=== PATIENT | female | born 1965 | race Caucasian/White ===

== ENCOUNTER 2017-12-22 00:15 | Outpatient (CLI) | payer OTHER, SELFPAY ==
--- NOTE | 2017-12-22 07:38 | DI.MAMMO_ITS ---
SYMPTOM/DIAGNOSIS: SCREENING, Z12.31 MAMMOGRAMS: Mammograms were interpreted according to the usual protocol including computer analysis with CAD system, tomosynthesis and C view imaging. Comparison is made with prior examinations. Breast density, category D. No masses or microcalcifications are seen. There is nothing to suggest malignancy. IMPRESSION: Negative mammogram. Routine screening is recommended. Category 1D. MQSA ASSESSMENT OF FINDINGS: Negative. Category 1. Patient will receive a letter notifying them of these results. BI-RADS category D. The breasts are extremely dense, which lowers the sensitivity of mammography.
== END 2017-12-22 00:35 ==
PROVIDERS: PCP Nurse Practitioner Family; Visit Provider Nurse Practitioner Family
DX: Z12.31 Encounter for screening mammogram for malignant neoplasm of breast (principal)
CPT/HCPCS: 77063; 77067

== ENCOUNTER 2018-04-21 18:45 | Outpatient (REF) | payer OTHER, SELFPAY ==
[2018-04-23 14:36] LABS: Chlamydia Result Negative; GC Result Negative; Specimen Description URINE
== END 2018-04-21 19:05 ==
LOC: NCHCN 18:45
PROVIDERS: PCP Nurse Practitioner Family; Visit Provider Nurse Practitioner Family
DX: R10.31 Right lower quadrant pain (principal); R39.15 Urgency of urination; L29.8 Other pruritus; Z11.3 Encounter for screening for infections with a predominantly sexual mode of transmission
CPT/HCPCS: 87491; 87591; 87086; 87480; 87510; 87660

== ENCOUNTER 2019-08-20 13:02 | Outpatient (REF) | payer OTHER, SELFPAY ==
--- NOTE | 2019-08-20 10:20 | PAPFT_PTH ---
PATIENT: Pauly Graves LOC: [facility] U#:[id number] AGE/SX: 53/F ROOM: RE08/20/[address]: SEYMOUR Blake : 1965 BED: DIS: 08/20/2019 SPEC #: [id number] RECD: 08/23/19 12:58 STATUS: ROBERT REQ #: [id number] TREVOR: 08/20/19 10:[address]: Nhung Ramírez DEPT: [facility] [place] Cytology RECD BY: Shantal Larsen ENTERED: 08/23/19 12:58 SP TYPE: PAPFT OTHR DR: Niki Hooker Tissues: 1 - CX/ENDOCX FOR PAP SMEARS Procedures: PAP THIN PREP/UVM Screening HPV DNA PROBE Comments: [id number]
== END 2019-08-20 13:22 ==
LOC: LBN 13:02
PROVIDERS: PCP Nurse Practitioner Family; Visit Provider Nurse Practitioner Family
DX: Z12.4 Encounter for screening for malignant neoplasm of cervix (principal); Z11.51 Encounter for screening for human papillomavirus (HPV)
CPT/HCPCS: 88142; 87624

== ENCOUNTER 2020-05-10 02:43 | Outpatient (CLI) | payer OTHER, SELFPAY ==
--- NOTE | 2020-05-10 15:50 | DI.MAMMO_ITS ---
EXAM: MG MAMMO SCREENING CLINICAL HISTORY: screening,z12.39 TECHNIQUE: Bilateral full field digital CC and MLO mammographic images were obtained with 3D tomosyn thesis and utilizing computer aided detection (CAD). COMPARISON: Available for comparison. FINDINGS: Masses/Architectural Distortion: None seen. Microcalcifications: No suspicious pleomorphic-type are seen. Skin Thickening/Nipple Retraction: None. IMPRESSION: 1. No significant interval change with no specific features of malignancy noted. 2. Unless there is more urgent need, screening mammography is recommended, as per [place] [employer] guidelines. BI-RADS Category 1 - Negative Breast Density - Category D - Extremely dense Breast density category C or D implies that the patient has dense breast tissue. Dense breast tissue is very common and is not abnormal but dense breast tissue can make it harder to find cancer on a ma mmogram. Also, dense breast tissue may increase their breast cancer risk. This information about the result of the mammogram report was provided to the patient to raise their awareness. Use this report when you speak with the patient about their risks for breast cancer, which includes their family hist ory. At that time, you may recommend for more screening tests (Ultrasound or MRI) as they might be us eful based on their risk. A negative radiographic report should not delay biopsy if a dominant or clinically suspicious mass is present. Up to ten percent of cancers are not identified on mammography. A negative report may reinforce clinical impression. Adenosis and dense breasts may obscure an underlying neoplasm. False positive reports average 6 to 10%. Patient will receive a letter notifying them of these results.
== END 2020-05-10 02:44 | disposition home or self-care (01) ==
LOC: DI 02:44
PROVIDERS: PCP Nurse Practitioner Family; Visit Provider Nurse Practitioner Family
DX: Z12.31 Encounter for screening mammogram for malignant neoplasm of breast (principal)
CPT/HCPCS: 77063; 77067

== ENCOUNTER 2020-05-25 02:48 | Outpatient (CLI) | payer OTHER, SELFPAY ==
[2020-05-25 09:00] LABS: Calculated LDL 155 mg/dL (<100); Cholesterol 245 mg/dL (<200); Glucose 96 mg/dL (74-106); HDL Cholesterol 66 mg/dL (40-60); Triglyceride 121 mg/dL (<150)
== END 2020-05-25 02:49 | disposition home or self-care (01) ==
LOC: LBO 02:48
PROVIDERS: PCP Nurse Practitioner Family; Visit Provider Nurse Practitioner Family
DX: Z00.00 Encounter for general adult medical examination without abnormal findings (principal); Z13.1 Encounter for screening for diabetes mellitus; Z13.220 Encounter for screening for lipoid disorders
CPT/HCPCS: 36415; 80061; 82947

== ENCOUNTER 2021-05-16 09:05 | Outpatient (REF) | payer OTHER, SELFPAY ==
[2021-05-16 13:19] LABS: Calculated LDL 143 mg/dL (<100); Cholesterol 240 mg/dL (<200); Glucose 88 mg/dL (74-106); HDL Cholesterol 83 mg/dL (40-60); Triglyceride 72 mg/dL (<150)
== END 2021-05-16 09:06 | disposition home or self-care (01) ==
LOC: NCHCN 09:05
PROVIDERS: PCP Nurse Practitioner Family; Visit Provider Nurse Practitioner Family
DX: Z00.00 Encounter for general adult medical examination without abnormal findings (principal); Z13.220 Encounter for screening for lipoid disorders; Z13.1 Encounter for screening for diabetes mellitus
CPT/HCPCS: 80061; 82947

== ENCOUNTER 2022-06-17 09:18 | Outpatient (REF) | payer OTHER, SELFPAY ==
[2022-06-17 09:58] LABS: Calculated LDL 145 mg/dL (<100); Cholesterol 236 mg/dL (<200); Glucose 94 mg/dL (74-106); HDL Cholesterol 81 mg/dL (40-60); Triglyceride 52 mg/dL (<150)
== END 2022-06-17 09:19 | disposition home or self-care (01) ==
LOC: NCHCN 09:18
PROVIDERS: PCP Nurse Practitioner Family; Visit Provider Nurse Practitioner Family
DX: Z00.00 Encounter for general adult medical examination without abnormal findings (principal); Z13.220 Encounter for screening for lipoid disorders; Z13.1 Encounter for screening for diabetes mellitus
CPT/HCPCS: 80061; 82947

== ENCOUNTER 2022-11-04 16:17 | Outpatient (REF) | payer OTHER, SELFPAY ==
--- NOTE | 2022-11-04 15:50 | PAPFT_PTH ---
PATIENT: Pauly Graves LOC: [facility] U#:[id number] AGE/SX: 57/F ROOM: RE11/04/[address]: Ruth Ray NP : 1965 BED: DIS: 11/04/2022 SPEC #: [id number] RECD: 11/04/22 18:00 STATUS: ROBERT REViajy #: [id number] TREVOR: 11/04/22 15:[address]: Ruth Ray NP DEPT: [facility] Cytology RECD BY: Shantal Larsen ENTERED: 11/04/22 18:01 SP TYPE: PAPFT OTHR DR: Niki Hooker Tissues: 1 - CX/ENDOCX FOR PAP SMEARS Procedures: PAP THIN PREP/UVM Screening HPV DNA PROBE Comments: [id number]
== END 2022-11-04 16:18 | disposition home or self-care (01) ==
LOC: LBN 16:17
PROVIDERS: PCP Nurse Practitioner Family; Visit Provider Nurse Practitioner Women's Health
DX: Z12.4 Encounter for screening for malignant neoplasm of cervix (principal); Z11.51 Encounter for screening for human papillomavirus (HPV); R87.810 Cervical high risk human papillomavirus (HPV) DNA test positive
CPT/HCPCS: 88142; 87624

== ENCOUNTER 2023-06-25 13:08 | Outpatient (REF) | payer BC, SELFPAY | END 2023-06-25 13:09 | disposition home or self-care (01) | LOC: LBN 13:08 | PROVIDERS: PCP Nurse Practitioner Family; Visit Provider Nurse Practitioner Women's Health | DX: N76.0 Acute vaginitis (principal) | CPT/HCPCS: 87480; 87510; 87660 ==

== ENCOUNTER 2023-07-22 11:09 | Outpatient (REF) | payer BC, SELFPAY | END 2023-07-22 11:10 | disposition home or self-care (01) | LOC: LBN 11:09 | PROVIDERS: PCP Nurse Practitioner Family; Visit Provider Nurse Practitioner Women's Health | DX: N76.0 Acute vaginitis (principal) | CPT/HCPCS: 87480; 87510; 87660 ==

== ENCOUNTER 2024-08-03 07:50 | Outpatient (CLI) | payer BC, SELFPAY ==
[2024-08-03 08:15] LABS: Calculated LDL 136 mg/dL (<100); Cholesterol 237 mg/dL (<200); Glucose 100 mg/dL (74-106); HDL Cholesterol 79 mg/dL (>or=50); Triglyceride 111 mg/dL (<150)
== END 2024-08-03 07:51 | disposition home or self-care (01) ==
LOC: LBO 07:50
PROVIDERS: PCP Nurse Practitioner Family; Visit Provider Nurse Practitioner Family
DX: Z00.00 Encounter for general adult medical examination without abnormal findings (principal)
CPT/HCPCS: 36415; 80061; 82947

== ENCOUNTER 2024-09-15 14:58 | Outpatient (CLI) | payer BC, SELFPAY ==
--- NOTE | 2024-09-15 14:30 | DI.RAD_ITS ---
Exam(s) XR HIP LT COMPLETE AP PELVIS EXAM: XR HIP LT COMPLETE AP PELVIS CLINICAL HISTORY: Lt hip pain s/p fall on 09/05, M25.552, r/o fx. TECHNIQUE: 2D digital imaging was performed of the left hip. Three views were obtained. AP pelvis and lateral left hip views were obtained. COMPARISON: No exams were available for comparison FINDINGS: BONES: No acute fracture is present. No bony destructive lesion is seen. JOINTS: No dislocation present. SOFT TISSUE: Normal. IMPRESSION: No acute fracture or dislocation. DATA REPOSITORY: RADIATION DOSE DELIVERED:
--- NOTE | 2024-09-15 15:33 | DI.RAD_ITS ---
Exam(s) XR LUMBAR SPINE COMPLETE EXAM: XR LUMBAR SPINE COMPLETE CLINICAL HISTORY: persistent back pain s/p fall last week, M54.9-dorsalgia, r/o fx. TECHNIQUE: 2D digital imaging was performed of the lumbar spine. Five images were obtained. AP, la teral, right oblique, left oblique and L5-S1 spot views were obtained. COMPARISON: No exams were available for comparison FINDINGS: BONES: There is a superior compression deformity of L1 with loss of approximately 20 percent of the h eight of the vertebral body anteriorly. There are no priors for comparison. The remaining vertebral b odies appear well maintained. Vertebral bodies are unremarkable. No facet hypertrophy identified. DISKS: Disc space narrowing is seen at L4-5. ALIGNMENT: Lumbar spinal alignment is within normal limits. No spondylolysis or spondylolisthesis. SOFT TISSUE: Normal. IMPRESSION: Superior compression deformity of L1 with loss of approximately 20 percent of the height of the verte bral body anteriorly. This is of indeterminate age. Given the recent history, MRI should be considere d for further characterization. DATA REPOSITORY: RADIATION DOSE DELIVERED:
== END 2024-09-15 15:18 ==
LOC: DI 15:01
PROVIDERS: PCP Nurse Practitioner Family; Visit Provider Nurse Practitioner Family
DX: S32.010A Wedge compression fracture of first lumbar vertebra, initial encounter for closed fracture (principal); M25.552 Pain in left hip; X58.XXXA Exposure to other specified factors, initial encounter
CPT/HCPCS: 72110; 73502